=== PATIENT | female | born 1975 | race Caucasian/White ===

== ENCOUNTER 2024-02-13 06:29 | Day surgery (SDC) | payer BC ==
[2024-02-10 10:55] LABS: Absolute Eosinophils 0.1 K/uL (0-0.5); Absolute Lymphocytes (CBC) 1.4 K/uL (0.7-4.9); Absolute Monocytes 0.5 K/uL (0.1-1.3); Absolute Neutrophil 3.4 K/uL (1.8-8.0); Basophils % 0.8 % (0-1.3); Eosinophils % 1.3 % (0-4.4); Hematocrit 42.3 % (36.0-45.0); Hemoglobin 14.1 g/dL (12.0-15.0); Lymphocytes % 26.2 % (15.3-44.8); MCH 27.2 pg (27.0-35.0); MCHC 33.4 g/dL (32.0-36.0); MCV 81.3 fL (80-100); MPV 9.7 fL (7.6-11.3); Monocytes % 9.1 % (3.3-12.3); Neutrophils % 62.6 % (41.7-73.7); Nucleated Red Blood Cells % 0.1 % (0-0); Platelets 171 thou/uL (152-406); Red Cell Distribution Width 13.8 % (12.1-15.2)
[2024-02-10 10:56] LABS: Specific Gravity 1.016 (1.005-1.030); Urine Bilirubin NEGATIVE (Negative); Urine Blood Negative (Negative); Urine Clarity Clear (Clear); Urine Color Light-Yellow (Yellow); Urine Glucose NEGATIVE (Negative); Urine Ketones NEGATIVE (Negative); Urine Microscopic Reflex YN NO UMIC; Urine Nitrite NEGATIVE (Negative); Urine Protein NEGATIVE (Negative); Urine Urobilinogen Normal (Normal)
--- NOTE | 2024-02-11 12:21 | EKG ---
Test Date: 2024-02-10 Test Time: 11:46:09 Hatchery Manager: SAMMY MEASUREMENT RESULTS: Intervals: Rate: 70 [place]: 160 QRSD: 102 QT: 392 QTc: 423 [place]: P: 32 [place]: 160 QRS: 58 T: 48 INTERPRETIVE STATEMENTS: Normal sinus rhythm Incomplete right bundle branch block Borderline ECG No previous ECG available for comparison Electronically Signed On 02-11-24 12:17:19 WELDER APPRENTICE by Bernard Oseguera
[2024-02-13] MEDS: Ringers Lactate 1,000 ML IV ONE ×2 (06:45→10:10)
[2024-02-13] MEDS ORDERED: SCOPOLAMINE HYDROBROMIDE PATCH TD ONE (06:51)
[2024-02-13] MEDS ORDERED: CEFAZOLIN SODIUM 1 GM/VIAL ONE (06:51)
[2024-02-13] MEDS ORDERED: propofoL 200 MG/20 ML VIAL IV ONE (06:54)
[2024-02-13] MEDS ORDERED: LIDOCAINE 1% MPF 5 ML VIAL ONE (06:54)
[2024-02-13] MEDS ORDERED: KETAMINE HCL IN 0.9 % NACL 50 MG/5 ML SYRINGE IV ONE (06:54)
[2024-02-13] MEDS ORDERED: ONDANSETRON 4 MG/2 ML VIAL ONE (06:54)
[2024-02-13] MEDS ORDERED: FENTANYL CITR 100 MCG/2 ML ONE ×3 (06:54→10:47)
[2024-02-13] MEDS ORDERED: ROCURONIUM 50 MG/5 ML VIAL IV ONE (06:54)
[2024-02-13] MEDS ORDERED: dexAMETHasone 4 MG/ML VIAL ONE (06:54)
[2024-02-13] MEDS ORDERED: MIDAZOLAM HCL 2 MG/2 ML INJ ONE (06:55)
[2024-02-13 08:11] LABS: Urine Specific Gravity/Preg >1.030 (1.005-1.030)
[2024-02-13] MEDS: BUPIVACAINE 0.25% PF 30 ML VIAL ONE (08:25)
[2024-02-13] MEDS: CEFAZOLIN SODIUM 2 GM/VIAL ONE (08:25)
[2024-02-13] MEDS ORDERED: EPHEDRINE SULF 50 MG/ML VIAL ONE (08:42)
[2024-02-13] MEDS ORDERED: GLYCOPYRROLATE 0.2 MG/ML SYR ONE (09:17)
[2024-02-13] MEDS ORDERED: KETOROLAC 30 MG/ML INJ ONE (11:12)
[2024-02-13] MEDS ORDERED: MORPHINE 10 MG/ML VIAL ONE (11:39)
[2024-02-13] MEDS: HYDROMORPHONE HCL 1 MG/ML INJ ONE (12:30)
[2024-02-13] MEDS: HYDROCODONE/APAP 5/325 MG TAB ONE (13:23)
[2024-02-13 14:03] VITALS: BP 120/55; TEMP 98.7; O2SAT 98
--- NOTE | 2024-02-13 23:23 | OP ---
Date of Procedure: 02/13/2024 Surgeon: Camilla Cuenca MD Sheet Metal Engineer: Alyssia Genao. Preoperative Diagnoses: Menorrhagia, pelvic pain, and right ovarian cyst. Postoperative Diagnoses: AUB-A/L/O, pelvic pain, stage IV endometriosis, endometriosis of the bilate ral uterosacrals, bilateral lateral mock, right periureteric anterior cul-de-sac, posterior cul-de-s ac endometriosis including endo on both ovaries, right much greater than left. Procedures Performed: 1.Total laparoscopic hysterectomy, bilateral salpingectomy. 2.Right oophorectomy. 3.Extensive endometriosis excision. 4.Right ureterolysis. Estimated Blood Loss: 50. Urine Output: 200. Fluids: LR 1800. Specimens: Uterus, bilateral tubes, right ovary, endometriosis of the left lateral wall uterosacral ligament, right lateral wall, right uterosacral, periureteric endometriosis, right posterior cul-de-s ac, right anterior cul-de-sac, and anterior broad ligament. All these endometriotic implants were ex cised completely from their based until normal tissue was noted. Right ureter was significantly diss ected all the way from the pelvic brim to the ureteric tunnel to isolate it and also release it from the fibrosis around. There appeared to be slight dilatation of the ureter proximal to the ureteric t unnel with deep infiltrating endometriosis seems to have formed a bridge across the ureter, likely ca using compression on it. The ovary on the right side has significant endometriosis on it and off the tube between the right an d the left. The right one was much more significant and given the fact that she had a right ovarian cyst, there was a possibility that they could be a deep-seated endometrium, although that was not harry arent today, that it would be beneficial to remove the right ovary and preserve the left. The epithe lial surface with endometriosis was completely cleaned out with fulguration and the left ovary was le ft intact. The ureters had normal peristalsis without any electrical, mechanical, or thermal injury to them and bladder was unremarkable as well. Condition: Stable. Anesthesia: General endotracheal. Indications: The patient is a 48-year-old female, who presented with iron deficiency anemia and robert rrhagia, 1, para 1, with 1 vaginal delivery, referred from primary care provider, . There was a 3.5 cm cyst on the right ovary that appeared to be complex and thick. The cyst wall wa s mostly unremarkable. CA-125 was 18. The patient has been on Myfembree for about a year, which was very helpful for regulating her cycles. She has been off this for about 2 years and has trouble james ping up with her gynecological visits and therefore had been bleeding longer and heavier and she had iron infusions due to anemia. She has been diagnosed with fibroids 18 years ago. Ultrasound was performed. Hysteroscopy D and C was done and no atypia or malignancy were noted. No large adnexal masses other than the 3.5 cm cyst. The patient was then offered all the different opti ons of medical management and surgical management including Myfembree or an IUD with endometriosis ex cision or ablation with endometriosis excision or hysterectomy most definitively with bilateral salpi ngectomy and endometriosis excision. Possible right ovarian cystectomy was reviewed with the patient. The patient was then consented and brought to the hospital, re-consented in the preoperative area with her , taken back to OR, pl aced in a supine fashion on the table. General anesthesia was given. She was placed in dorsal litho magdalena position using Terrence stirrups. Abdomen, vulva, vagina, and perineum were prepped and draped in a sterile fashion. Patton was placed to drain the bladder. Positioning was checked. The patient was grounded. SCDs started. Time-out was done and then procedure started. Speculum placed to expose the cervix. Anterior lip grasped with single-tooth tenaculum and dilated t o 16-Welsh. A 16-Welsh uterine manipulator was introduced and then a large cup of the uterine desiree pulator was introduced and fixed in place. Patton was placed to drain the bladder and attached to gra vity bag and this area was draped. 1 cm infraumbilical incision made with a scalpel using the open laparoscopy technique. Fascia was in cised, tagged with 3-0 Vicryl sutures. Peritoneum entered sharply. Brittnee introduced. Site of entr y was checked and was unremarkable. A left lower quadrant and a right lower quadrant 5 port was plac ed. Then, a 10/11 suprapubic port was placed all under direct vision after injecting Marcaine at the fascia and skin. 3-0 Monocryl was used to tag the epiploicae of the colon to retract for providing good exposure. On survey of the pelvic cavity, the implants of endometriosis were extensive on bilateral uterosacral ligaments, lateral mock, more on the right than on the left side, and then adhesions of the ovary t o the right lateral wall, cul-de-sac endometriosis both anterior and posteriorly. The work was very straightforward in removing endometriosis first, then followed by the hysterectomy with the right oophorectomy. Endometriosis excision: The left lateral wall was opened lateral to the ureter, pretty close to the crossing of the ureter under the uterine artery. The peritoneum entered sharply, was reflected by di ssecting the peritoneum off the underlying tissues along with endometriosis and peeling it off toward s the uterosacral and the specimen was dissected along the uterosacral and excised. Then on the righ t lateral aspect, there were significant implants and deep infiltrating endometriosis. It was diffic ult to open up the lateral wall from the medial aspect of the broad ligament, so plan was to go on th e opposite side. After the mesosalpinx was opened up between the round ligament on the right side an d the origin of the IP ligament, the posterior peritoneum was incised using a pickup and scissors to create a good window between the ureter and the IP for me to take the pedicle. Once the pedicle was taken down with the help of the LigaSure, then round ligament was also taken down. The dissection wa s carried on to separate the endometriotic implants from the lateral wall. The peritoneum was dissec trinh from the sidewall, the ureter, and the uterosacral ligament and the implants were excised. Then, the implant on the medial aspect of the right uterosacral ligament going into the posterior cul-de-s ac, this was excised as well with the help of LigaSure as well as scissors. Once there was endometri osis removed from here, then went over to the anterior cul-de-sac. The bladder was dissected inferiorly and went over circumferentially removing all the implants in the right anterior broad ligament and anterior cul-de-sac. This was excised from the superior border of the bladder from the lateral aspect of the uterus and folded over on the uterine wall neck. Once th is was excised and handed out until normal tissue was seen, attention was directed to the ureterolysi s. The ureter was open at the brim of the pelvis from the medial leaf of the broad ligament by opening u p the sheath. This was done with sharp dissection using scissors. Once the ureter was dissected rig ht below the level of the pelvic brim, then the dissection was carried inferiorly the retr operitoneal fibrosis from medial to lateral and getting down all the way to the ureteric tunnel. Onc e I was at the ureteric tunnel, this was nicely dissected under the uterine artery and carefully sepa rated from the medial aspect of the endometriotic scar of the uterosacral ligament. Once this was re leased laterally, the uterine artery and vein were noted. The endometriosis was going right on the s urface of these vessels. This was carefully peeled off making an attempt to not leave any residual. Once this plane was clearly dissected and all the endometriosis was removed, the posterior cul-de-sa c right side endometriosis was excised as well. Hysterectomy: The left mesosalpinx was opened up. There were implants on the lateral aspect of the mesosalpinx which were also clearly included with the specimen. Then, mesosalpinx was dissected and the tube. Then, round ligament was taken down. Utero-ovarian ligament was taken down and the anteri or broad ligament opened up to connect the bladder flap, and bladder flap created with monopolar scis sors. Posteriorly, the dissection was taken down to the uterosacral and here it was down to the uter osacral without any problems. Then, the vessels were isolated on both sides, cauterized, and cut wit h the bipolar and monopolar cautery and scissors respectively. Cardinal ligaments were also cauteriz ed and cut. Circumferential colpotomy performed with a monopolar hook blade and taken down around ci rcumferentially and specimen retrieved through the vagina. After thorough irrigation and suction were performed, there was no need for any hemostasis since this was hemostatic already. Two simple lateral PDS sutures were placed and 3 [id number] in the mi ddle. Then, I was able to upgrade the position on both the mock of the anterior and posterior vagin a. Endometriosis fulguration: There were surface epithelial lesions on the left ovary which were cauter ized with the curved tip bipolar and there were implants in the right and left pararectal spaces and these were also picked up and cauterized. I did not want to have any more tissue necrosis in the pos terior aspect of the cul-de-sac with increased risk of likely fistula or any rectal injury. Once all this was complete of fulguration, then the case was completed. Thorough irrigation and suct ion were performed. Excellent peristalsis on both ureters. No evidence of any trauma to the bladder . All instruments removed under direct vision. Trocars removed as the epiploicae that was tagged wa s released and opened and there was cautery ahead to do on one of the epiploica. There was excellent hemostasis. All trocars removed. Fascia was closed at the umbilicus with tagged 0 Vicryl sutures tied to each other and a simple 0 Vicryl stitch in the suprapubic midline. All ski n incisions were closed with interrupted 4-0 Monocryl sutures. The vaginal occluder and Patton were r emoved. All the trocars were removed after gas was desufflated. The procedure was completed. The p atnagi was recovered from anesthesia and taken to PACU in stable condition. MICHELLE/JOANN Voice ID: [id number] Report ID: [id number]
== END 2024-02-13 14:35 | disposition home or self-care (01) ==
LOC: OR 06:29
PROVIDERS: ATTEND Obstetrics & Gynecology
PROC: 0UT74ZZ Resection of Bilateral Fallopian Tubes, Percutaneous Endoscopic Approach (ICD-10-PCS; 2024-02-13)
PROC: 0UT04ZZ Resection of Right Ovary, Percutaneous Endoscopic Approach (ICD-10-PCS; 2024-02-13)
PROC: 0UBF4ZZ Excision of Cul-de-sac, Percutaneous Endoscopic Approach (ICD-10-PCS; 2024-02-13)
PROC: 0UB44ZZ Excision of Uterine Supporting Structure, Percutaneous Endoscopic Approach (ICD-10-PCS; 2024-02-13)
PROC: 0DBW4ZZ Excision of Peritoneum, Percutaneous Endoscopic Approach (ICD-10-PCS; 2024-02-13)
PROC: 0WBF4ZZ Excision of Abdominal Wall, Percutaneous Endoscopic Approach (ICD-10-PCS; 2024-02-13)
PROC: 0TN64ZZ Release Right Ureter, Percutaneous Endoscopic Approach (ICD-10-PCS; 2024-02-13)
PROC: 0UT94ZZ Resection of Uterus, Percutaneous Endoscopic Approach (ICD-10-PCS; principal; 2024-02-13 07:30)
DX: N92.0 Excessive and frequent menstruation with regular cycle (principal); R10.2 Pelvic and perineal pain; N83.291 Other ovarian cyst, right side; N80.A61 Endometriosis of right ureter, unspecified depth; N80.319 Endometriosis of the anterior cul-de-sac, unspecified depth; N80.329 Endometriosis of the posterior cul-de-sac, unspecified depth; N80.3C1 Endometriosis of the right uterosacral ligament, unspecified depth; N80.30 Endometriosis of pelvic peritoneum, unspecified
CPT/HCPCS: 93005; 85025; 36415; 86900; 86850; 81025; 86901; 88305; 81003; 58571; 58662; 50949; J2704; J1100; J2003; J2250; J3010 ×3; J1171; J2405; J7120 ×2; J0690; 88307; 88311

== ENCOUNTER 2024-08-13 17:13 | Emergency (ER) | payer BC ==
--- OUTSIDE RECORDS SUMMARY | 2024-08-13 17:16 | XMS REPORT | Continuity of Care Document ---
Author Name Unknown Address [address] [facility] [address] [place] [address] Organization [facility] [place] Address [address] [facility] [address] [place] [address] Care Team Providers Care Material Stockkeeper [employer] Name Role Phone MARKUS_Luis Attending Clinician Unavailable MARKUS_Luis Admitting Clinician Unavailable Payers Payer Name Policy Type Policy Number Effective Date Expirati on Date Source [place] [id number] 2022 00:00:00 Problems Condition Name Condition Details Condition Category Status Onset Date Resolution Date Last Treatment Date Treating Clinician Comments Source Condyloma acuminatum of the anogenital region Condyloma Acuminatum of the Anogenital Region Problem Active 4-02 00:00: 00 [facility] Hypertroph y of labia Hypertroph y of Labia Problem Active 4-02 00:00: 00 [facility] Skin tag Skin Tag Problem Active 4-02 00:00: 00 [facility] Tinea corporis Tinea Corporis Problem Active 2023-04-18 00:00: 00 [facility] Candidiasi s of vagina Candidiasi s of Vagina Problem Active 2023-04 1-18 00:00: 00 [facility] Essential hypertensi on Essential Hypertensi on Problem Active 2023-04 0-15 00:00: 00 [facility] Complex cyst of right ovary Complex Cyst of Right Ovary Problem Active - 00:00: 00 [facility] Iron deficiency anemia Iron Deficiency Anemia Problem Active - 00:00: 00 [facility] Pain in pelvis Pain in Pelvis Problem Active - 00:00: 00 [facility] Pelvic and perineal pain Pelvic and Perineal Pain Problem Active 12-29 00:00: 00 [facility] Excessive and frequent menstruati on Excessive and Frequent Menstruati on Problem Active 12-10 00:00: 00 [facility] Social History Smoking Status Start Date Stop Date Source Never Smoker [facility] Medications Ordered Medication Name Filled Medication Name Start Date Stop Date Current Medication? Ordering Clinician Indication Dosage Frequency Signature (SIG) Comments Components Source duloxetine 60 mg capsule,del ayed release TAKE 1 CAPSULE BY MOUTH EVERY DAY duloxetine 60 mg capsule,del ayed release TAKE 1 CAPSULE BY MOUTH EVERY DAY No duloxetine 60 mg capsule,de layed release TAKE 1 CAPSULE BY MOUTH EVERY DAY [facility] nebivolol 20 mg tablet TAKE 1 TABLET BY MOUTH EVERY DAY nebivolol 20 mg tablet TAKE 1 TABLET BY MOUTH EVERY DAY No nebivolol 20 mg tablet TAKE 1 TABLET BY MOUTH EVERY DAY [facility] ondansetron 4 [address] disintegr[address] ing tablet PL[address] 1 TABLET BY TRANSLINGUA L ROUTE EVERY 6 TO 8 HOURS NEEDED ondansetron 4 mg disintegrat ing tablet PLACE 1 TABLET BY TRANSLINGUA L ROUTE EVERY 6 TO 8 HOURS NEEDED No 1 Q7H ondansetro n 4 mg disintegra ting tablet PLACE 1 TABLET BY TRANSLINGU AL ROUTE EVERY 6 TO 8 HOURS NEEDED [facility] valacyclovi r 1 gram tablet valacyclovi r 1 gram tablet No valacyclov ir 1 gram tablet [facility] valacyclovi r 500 mg tablet TAKE 1 TABLET BY MOUTH ONCE A DAY FOR CHRONIC SUPPRESSION valacyclovi r 500 mg tablet TAKE 1 TABLET BY MOUTH ONCE A DAY FOR CHRONIC SUPPRESSION No valacyclov ir 500 mg tablet TAKE 1 TABLET BY MOUTH ONCE A DAY FOR CHRONIC SUPPRESSIO N [facility] hydrochloro thiazide 25 mg tablet TAKE 1 TABLET BY MOUTH EVERY DAY hydrochloro thiazide 25 mg tablet TAKE 1 TABLET BY MOUTH EVERY DAY No 1 Q1D hydrochlor othiazide 25 mg tablet TAKE 1 TABLET BY MOUTH EVERY DAY [facility] Venofer 200 mg iron/10 mL intravenous solution Dose: 200 mg IV x5 doses w/in 14 days Venofer 200 mg iron/10 mL intravenous solution Dose: 200 mg IV x5 doses w/in 14 days No Venofer 200 mg iron/10 mL intravenou s solution Dose: 200 mg IV x5 doses w/in 14 days [facility] celecoxib 200 mg capsule TAKE 1 CAPSULE EVERY DAY BY ORAL ROUTE DIRECTED FOR 1 DAY. celecoxib 200 mg capsule TAKE 1 CAPSULE EVERY DAY BY ORAL ROUTE DIRECTED FOR 1 DAY. No celecoxib 200 mg capsule TAKE 1 CAPSULE EVERY DAY BY ORAL ROUTE DIRECTED FOR 1 DAY. [facility] compounded medication Semagltuide sq qw compounded medication Semagltuide sq qw No compounded medication Semagltuid e sq qw [facility] diazepam 10 mg tablet PLEASE SEE ATTACHED FOR DETAILED DIRECTIONS diazepam 10 mg tablet PLEASE SEE ATTACHED FOR DETAILED DIRECTIONS No diazepam 10 mg tablet PLEASE SEE ATTACHED FOR DETAILED DIRECTIONS [facility] tramadol 50 mg tablet TAKE 1 TABLET BY MOUTH EVERY 8 HOURS NEEDED FOR 3 DAYS tramadol 50 mg tablet TAKE 1 TABLET BY MOUTH EVERY 8 HOURS NEEDED FOR 3 DAYS No tramadol 50 mg tablet TAKE 1 TABLET BY MOUTH EVERY 8 HOURS NEEDED FOR 3 DAYS [facility] hydrochloro thiazide 25 mg tablet TAKE 1 TABLET BY MOUTH EVERY DAY hydrochloro thiazide 25 mg tablet TAKE 1 TABLET BY MOUTH EVERY DAY No hydrochlor othiazide 25 mg tablet TAKE 1 TABLET BY MOUTH EVERY DAY [facility] nebivolol 20 mg tablet TAKE 1 TABLET BY MOUTH EVERY DAY nebivolol 20 mg tablet TAKE 1 TABLET BY MOUTH EVERY DAY No nebivolol 20 mg tablet TAKE 1 TABLET BY MOUTH EVERY DAY [facility] amitriptyli ne 25 mg tablet TAKE 1 TABLET BY MOUTH EVERYDAY AT BEDTIME amitriptyli ne 25 mg tablet TAKE 1 TABLET BY MOUTH EVERYDAY AT BEDTIME No 1 Q1D amitriptyl ine 25 mg tablet TAKE 1 TABLET BY MOUTH EVERYDAY AT BEDTIME [facility] duloxetine 60 mg capsule,del ayed release TAKE 1 CAPSULE BY MOUTH EVERY DAY duloxetine 60 mg capsule,del ayed release TAKE 1 CAPSULE BY MOUTH EVERY DAY No duloxetine 60 mg capsule,de layed release TAKE 1 CAPSULE BY MOUTH EVERY DAY [facility] buspirone 7.5 mg tablet TAKE 1 TABLET BY MOUTH TWICE A DAY buspirone 7.5 mg tablet TAKE 1 TABLET BY MOUTH TWICE A DAY No 1 BID buspirone 7.5 mg tablet TAKE 1 TABLET BY MOUTH TWICE A DAY [facility] amitriptyli ne 25 mg tablet TAKE 1 TABLET BY MOUTH EVERYDAY AT BEDTIME amitriptyli ne 25 mg tablet TAKE 1 TABLET BY MOUTH EVERYDAY AT BEDTIME No amitriptyl ine 25 mg tablet TAKE 1 TABLET BY MOUTH EVERYDAY AT BEDTIME [facility] Medical compounded medication Simagltuide SQ QW SQ QW compounded medication Simagltuide SQ QW SQ QW No compounded medication Simagltuid e SQ QW SQ QW [facility] buspirone 7.5 mg tablet TAKE 1 TABLET BY MOUTH TWICE A DAY buspirone 7.5 mg tablet TAKE 1 TABLET BY MOUTH TWICE A DAY No buspirone 7.5 mg tablet TAKE 1 TABLET BY MOUTH TWICE A DAY [facility] valacyclovi r 500 mg tablet valacyclovi r 500 mg tablet No valacyclov ir 500 mg tablet [facility] Vital Signs Vital Name Observation Time Observation Value Comments [facility] BP Diastolic 2024-07-08 00:00:00 80 mm[Hg] [facility] BP Systolic 2024-07-08 00:00:00 128 mm[Hg] [facility] Height 2024-07-08 00:00:00 68 [in_i] [facility] BP Diastolic 2024-02-24 00:00:00 57 mm[Hg] [facility] Height 2024-02-24 00:00:00 68 [in_i] [facility] BP Systolic 2024-02-24 00:00:00 124 mm[Hg] [facility] BMI (Body Mass Index) 2024-02-24 00:00:00 35.6 kg/m2 [facility] Body Weight 2024-02-24 00:00:00 234 [lb_av] [facility] Height 2024-02-20 00:00:00 68 [in_i] [facility] BP Diastolic 2024-02-20 00:00:00 79 mm[Hg] [facility] BP Systolic 2024-02-20 00:00:00 94 mm[Hg] [facility] Body Weight 2024-02-20 00:00:00 234 [lb_av] [facility] BMI (Body Mass Index) 2024-02-20 00:00:00 35.6 kg/m2 [facility] BP Systolic 2024-01-21 00:00:00 132 mm[Hg] [facility] Body Weight 2024-01-21 00:00:00 234 [lb_av] [facility] BP Diastolic 2024-01-21 00:00:00 72 mm[Hg] [facility] BMI (Body Mass Index) 2024-01-21 00:00:00 35.6 kg/m2 [facility] Height 2024-01-21 00:00:00 68 [in_i] [facility] BMI (Body Mass Index) 2024-01-14 00:00:00 37.3 kg/m2 [facility] Body Weight 2024-01-14 00:00:00 3814 [oz_av] [facility] Height 2024-01-14 00:00:00 67 [in_i] [facility] BP Systolic 2023-12-13 00:00:00 97 mm[Hg] [facility] Height 2023-12-13 00:00:00 68 [in_i] [facility] BP Diastolic 2023-12-13 00:00:00 62 mm[Hg] [facility] BP Systolic 2023-11-12 00:00:00 127 mm[Hg] [facility] Height 2023-11-12 00:00:00 68 [in_i] [facility] BMI (Body Mass Index) 2023-11-12 00:00:00 35.6 kg/m2 [facility] BP Diastolic 2023-11-12 00:00:00 74 mm[Hg] [facility] Body Weight 2023-11-12 00:00:00 234 [lb_av] [facility] BP Diastolic 2023-10-01 00:00:00 86 mm[Hg] [facility] BP Systolic 2023-10-01 00:00:00 132 mm[Hg] [facility] Body Weight 2023-10-01 00:00:00 3759 [oz_av] [facility] Height 2023-10-01 00:00:00 67 [in_i] [facility] BMI (Body Mass Index) 2023-10-01 00:00:00 36.8 kg/m2 [facility] BP Systolic 2023-05-01 00:00:00 164 mm[Hg] [facility] BP Diastolic 2023-05-01 00:00:00 76 mm[Hg] [facility] BMI (Body Mass Index) 2023-05-01 00:00:00 40.3 kg/m2 [facility] Height 2023-05-01 00:00:00 67 [in_i] [facility] Body Weight 2023-05-01 00:00:00 4122 [oz_av] [facility] Procedures Procedure Date / Time Performed Performing Clinician Source XR, foot, 3 or more view 2024-01-14 00:00:00 [facility] US, pelvis, transabdominal + transvaginal 2023-10-01 00:00:00 [facility] MAMMO, screening, bilateral 2023-05-01 00:00:00 [facility] US, pelvis, transabdominal + transvaginal 2023-05-01 00:00:00 [facility] Encounters Start Date/Time End Date/Time Encounter Type Admission Type Attending Clinicians Care Facility Care Department Encounter ID Source 2024-07-08 00:00:00 2024-07-08 00:00:00 Camilla Cuenca MD: [address], [place] [address] , Ph. [facility] GC[facility]* [id number] [facility] 2024-02-24 00:00:00 2024-02-24 00:00:00 PETR Bowden: [address], [place] [address] , Ph. [facility]_GCBZ[facility]* [id number] [facility] 2024-02-20 00:00:00 2024-02-20 00:00:00 PETR Castro: [address], [place] [id number] , Ph. [facility] - GC_GCBZW_[facility]* [id number] [facility] 2024-01-21 00:00:00 2024-01-21 00:00:00 JORGE CastroP: [address], [place] [address] , Ph. [facility] - GC_GCBZW_[facility]* [id number] [facility] 2024-01-14 00:00:00 2024-01-14 00:00:00 Koby Vazquez, MSN, EVENT SET UP SPECIALIST, SUPERVISOR GRADING-C: [address], [address], [place] [address] , Ph. [facility], Koby Vazquez, MSN, SUPERVISOR [employer] [id number] [facility] 2023-12-25 00:00:00 2023-12-25 00:00:00 PETR Bowden: [address], [place] [address] , Ph. [facility] - GC_GCBZW_[facility]* [id number] [facility] 2023-12-13 00:00:00 2023-12-13 00:00:00 Camilla Cuenca MD: [address], [place] [address] , Ph. [facility] - GC_GCBZW_[facility]* [id number] [facility] 2023-11-12 00:00:00 2023-11-12 00:00:00 JAN Olivo: [address], [place] [address] , Ph. [facility] - GC_[facility]BZW_[place] [facility]* [id number] [facility] 2023-10-01 00:00:00 2023-10-01 00:00:00 Koby Vazquez, MSN, EVENT SET UP SPECIALIST, SUPERVISOR GRADING[employer]: [address], [address], [place] [address] , Ph. [facility], Koby Vazquez, MSN, SUPERVISOR [employer] [id number] 2023-08-07 00:00:00 2023-08-07 00:00:00 Koby Vazquez MSN, EVENT SET UP SPECIALIST, SUPERVISOR GRADING-C: [address], [address], [place] [address] , Ph. [facility], Koby Vazquez MSN, SUPERVISOR [employer]C [id number] [facility] 2023-05-28 00:00:00 2023-05-28 00:00:00 Outpatient [facility] [id number] [facility] 2023-05-15 00:00:00 2023-05-15 00:00:00 Outpatient [facility] [id number] [facility] 2023-05-01 00:00:00 2023-05-01 00:00:00 Outpatient [facility] [id number] [facility] 2023-05-01 00:00:00 2023-05-01 00:00:00 Koby Vazquez, MSN, EVENT SET UP SPECIALIST, SUPERVISOR GRADING-C: [address], [address], [place] [address] , Ph. [facility], Koby Vazquez, MSN, SUPERVISOR GRADING-C [id number] [facility] 2023-04-18 00:00:00 2023-04-18 00:00:00 Outpatient MARKUS_Luis [facility] [id number] [facility] Results Test Description Test Time Test Comments Results Result Co mments Source [facility] MedicalCancer Ag 125 [Units/volume] in Serum or [id number] 00:00:00 * Test Item Value Reference Range Interpretation Comme nts CA-125 (test code = CA-125) 18.4 U/mL 6.4-38.1 [facility] Medicalpregnancy test, [id number] 09:43:00* Test Item Value Reference Range Interpretation Comme nts HCG (test code = HCG) negative [facility] MedicalChlamydia trachomatis and Neisseria gonorrhoeae rRNA panel - Specimen by CHIQUIS with probe [id number] 00:00:00* Test Item Value Reference Range Interpretation Comme nts aptima combo 2 swab (CT) (te st code = aptima combo 2 swab (CT)) CT NEG negative aptima combo 2 swab (GC) (te st code = aptima combo 2 swab (GC)) GC NEG negative [facility] Medicalpap, LB + [id number] 00:00:00* Test Item Value Reference Range Interpretation Comme nts LMP date: (test code = LMP date:) 10/24/2023 Pap, liquid-based (test code = Pap, liquid-based) NILM nilm source (liquid-based cytology): (test code = source (liquid-based cytology):) CERVICAL (WHICH INCLUDES ENDOCERVICAL) HPV high risk DNA (non 16/18) (test code = HPV high risk DNA (non 16/18)) NOT DETECTED not detected HPV high risk DNA type 16 (test code = HPV high risk DNA type 16) NOT DETECTED not detected HPV high risk DNA type 18 (test code = HPV high risk DNA type 18) NOT DETECTED not detected [facility]
[2024-08-13] MEDS ORDERED: ONDANSETRON 4 MG/2 ML VIAL ONE ×2 (17:51→20:44)
[2024-08-13] MEDS ORDERED: MORPHINE 4 MG/ML SYR ONE ×2 (17:51→20:44)
[2024-08-13] MEDS ORDERED: NA CHLORIDE 0.9% 1,000 ML ONE (17:51)
[2024-08-13 18:10] LABS: Absolute Basophils 0.1 K/uL (0-0.5); Absolute Eosinophils 0.1 K/uL (0-0.5); Absolute Lymphocytes (CBC) 1.4 K/uL (0.7-4.9); Absolute Monocytes 0.8 K/uL (0.1-1.3); Absolute Neutrophil 8.1 K/uL (1.8-8.0); Basophils % 0.5 % (0-1.3); Eosinophils % 1.4 % (0-4.4); Hematocrit 45.5 % (36.0-45.0); Hemoglobin 15.5 g/dL (12.0-15.0); Lymphocytes % 13.5 % (15.3-44.8); MCHC 34.2 g/dL (32.0-36.0); MCV 81.9 fL (80-100); MPV 9.2 fL (7.6-11.3); Monocytes % 7.3 % (3.3-12.3); Neutrophils % 77.3 % (41.7-73.7); Nucleated Red Blood Cells % 0.2 % (0-0); Platelets 161 thou/uL (152-406); RBC Red Blood Cell Count 5.55 M/uL (3.86-4.86); Red Cell Distribution Width 14.2 % (12.1-15.2)
[2024-08-13 18:28] LABS: Specific Gravity 1.015 (1.005-1.030)
[2024-08-13 18:29] LABS: ALT/SGPT 359 U/L (13-56); AST/SGOT 224 U/L (15-37); Albumin 3.9 g/dL (3.4-5.0); Albumin/Globulin Ratio 1.1 (1.1-1.8); Alkaline Phosphatase 228 U/L (45-117); Anion Gap 11.3 mEq/L (5.0-15.0); BUN Blood Urea Nitrogen 13 mg/dL (7-18); Bicarbonate 26 mEq/L (21-32); Bilirubin Total 6.8 mg/dL (0.2-1.0); Globulin 3.4 g/dL (2.3-3.5); Glomerular Filtration Rate 61 ml/min (=/>90); Glucose Level 120 mg/dL (74-106); Potassium 3.3 mEq/L (3.5-5.1); Protein, Total 7.3 g/dL (6.4-8.2); Sodium Level 136 mEq/L (136-145)
[2024-08-13 18:35] LABS: Lipase > 5000 U/L (13-75)
--- NOTE | 2024-08-13 19:12 | ER ---
Nurse's Notes [facility] Name: Ankita Love Age: 49 yrs Sex: Female : 1975 Arrival Date: 08/13/2024 Time: 17:13 Bed 7 Private MD: Diagnosis: Choledocholithiasis, abdominal pain, hyperbilirubinemia, gallstone pancreatitis Presentation: 08/13 17:32 Chief complaint: Patient states: 2 -3 months started having pain on right abd area, the iw past 7-10 days started having diarrhea and bloating and pain under right ribs. Coronavirus screen: At this time, the client does not indicate any symptoms associated with coronavirus-19. Ebola Screen: No symptoms or risks identified at this time. Initial Sepsis Screen: Does the patient meet any 2 criteria? No. Patient's initial sepsis screen is negative. Does the patient have a suspected source of infection? No. Patient's initial sepsis screen is negative. Risk Assessment: Do you want to hurt yourself or someone else? Patient reports no desire to harm self or others. Onset of symptoms was August 06, 2024. 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 - Infectious Disease History:: Denies. - Social history:: Smoking status: Patient denies any tobacco usage or history of. Screenin:21 [facility] ED Fall Risk Assessment (Adult) History of falling in the last 3 months, kc6 including since admission No falls in past 3 months (0 pts) Confusion or Disorientation No (0 pts) Intoxicated or Sedated No (0 pts) Impaired Gait No (0 pts) Mobility Assist Device Used No (0 pt) Altered Elimination No (0 pt) Score/Fall Risk Level 0 - 2 = Low Risk Oriented to surroundings. Abuse screen: Denies threats or abuse. Denies injuries from another. Nutritional screening: No deficits noted. Tuberculosis screening: No symptoms or risk factors identified. Assessment: 18:21 General: Appears in no apparent distress. comfortable, well groomed, well developed, kc6 Behavior is calm, cooperative, appropriate for age. Pain: Complains of pain in right upper quadrant and left upper quadrant Pain does not radiate. Pain currently is 7 out of 10 on a pain scale. Quality of pain is described as sharp, Pain began 1 day ago. Is intermittent. Neuro: Level of Consciousness is awake, alert, obeys commands, Oriented to person, place, time, situation, Appropriate for age. Cardiovascular: Capillary refill < 3 seconds. Respiratory: Airway is patent Trachea midline Respiratory effort is even, unlabored, Respiratory pattern is regular, symmetrical. GI: Abdomen is round non-distended, Bowel sounds present X 4 quads. Abd is soft X 4 quads Abdomen is tender to palpation in right upper quadrant and left upper quadrant Reports upper abdominal pain, nausea, Patient currently denies diarrhea, vomiting. : Urine is blood tinged, Denies burning with urination, urinary frequency, urgency. EENT: No signs and/or symptoms were reported regarding the EENT system. Derm: Skin is intact, is healthy with good turgor, Skin is dry, Skin is jaundiced, Skin temperature is warm. Musculoskeletal: No signs and/or symptoms reported regarding the musculoskeletal system. Circulation, motion, and sensation intact. Range of motion: intact in all extremities. 19:36 Reassessment: Patient appears in no apparent distress at this time. Patient and/or bm8 family updated on plan of care and expected duration. Pain level reassessed. Patient is alert, oriented x 3, equal unlabored respirations, skin warm/dry/pink. Patient states feeling better. Patient states symptoms have improved. Pain: Complains of pain in right upper quadrant Pain currently is 5 out of 10 on a pain scale. 20:03 Reassessment: report given to caio mendez \T\ [facility]. 8 20:41 Reassessment: Patient appears in no apparent distress at this time. Patient and/or bm8 family updated on plan of care and expected duration. Pain level reassessed. Patient is alert, oriented x 3, equal unlabored respirations, skin warm/dry/pink. Patient states feeling better. Patient states symptoms have improved. Pain: Complains of pain in right upper quadrant Pain currently is 3 out of 10 on a pain scale. Vital Signs: 17:32 BP 136 / 92; Pulse 64; Resp 20 S; Temp 97.8; Pulse Ox 99% on R/A; Weight 106.59 kg; iw Height 5 ft. 8 in. ; Pain 7/10; 19:36 BP 152 / 73; Pulse 68; Resp 18; Temp 97.8; Pulse Ox 100% ; Pain 5/10; bm8 20:41 BP 134 / 76; Pulse 62; Resp 18; Temp 97.8; Pulse Ox 100% ; Pain 5/10; bm8 17:32 Body Mass Index 35.73 (106.59 kg, 172.72 cm) iw 17:32 Pain Scale: Adult iw 19:36 Pain Scale: Adult bm8 20:41 Pain Scale: Adult bm8 Morton Coma Score: 19:36 Eye Response: spontaneous(4). Motor Response: obeys commands(6). Verbal Response: bm8 oriented(5). Total: 15. 20:41 Eye Response: spontaneous(4). Motor Response: obeys commands(6). Verbal Response: bm8 oriented(5). Total: 15. ED Course: 17:17 Patient arrived in ED. gl 17:18 Sameer Mendez MD is Attending Physician. sp3 17:34 Triage completed. iw 17:36 Arm band placed on. iw 17:42 Constantine Vigil RN is Primary Nurse. bp 18:21 Patient has correct armband on for positive identification. Placed in gown. Bed in low kc6 position. Call light in reach. Side rails up X 1. Adult w/ patient. Pulse ox on. NIBP on. Door closed. Noise minimized. Lights dimmed. Pillow given. Verbal reassurance given. 18:21 Initial lab(s) drawn, by ED staff, sent to lab. Urine collected: clean catch specimen, kc6 clear. Inserted saline lock: 20 gauge in right antecubital area, using aseptic technique. Blood collected. Flushed with 10 mL NS. Patient maintains SpO2 saturation greater than 95% on room air. 18:45 US Abdomen Limited In Process Unspecified. EDMS 19:00 Report given to CAIO Santos \T\ CAIO Pelayo. kc6 19:09 CT Abd/Pelvis - IV Contrast Only In Process Unspecified. EDMS 19:17 Transfer initiated \T\ 1916. bc6 19:36 Provided Education on: need for transfer. bm8 19:36 No provider procedures requiring assistance completed. bm8 20:23 Pt accepte to [facility] \T\[address] Florentino, admin approval \T\1934 by Matthew Garza. bc 6 [place] to tranport. 20:41 Patient transferred, IV remains in place. bm8 Administered Medications: 18:21 Drug: morphine IVP or IV 4 mg IVP once over 4 mins Route: IVP; Infused Over: 4 mins; kc6 Site: right antecubital; 18:41 Follow up: Response: No adverse reaction; Pain is unchanged, physician notified; RASS: kc6 Alert and Calm (0) 18:21 Drug: NS 0.9% IV 1000 ml IV at 1 bolus Per protocol; to be given as a bolus over 60 kc6 minutes Route: IV; Rate: 1 bolus; Site: right antecubital; 19:38 Follow up: Response: No adverse reaction; IV Status: Completed infusion bm8 18:22 Drug: Ondansetron IVP 4 mg IVP once; over 2 minutes Route: IVP; Site: right antecubital;kc6 18:41 Follow up: Response: No adverse reaction 6 19:38 Drug: HYDROmorphone IVP 1 mg IVP once Route: IVP; Site: right antecubital; bm8 20:42 Follow up: Response: No adverse reaction bm8 19:38 Drug: Piperacillin-Tazobactam IVPB 3.375 grams IVPB once over 60 mins; (mix in NS 100 bm8 mL) Route: IVPB; Infused Over: 60 mins; Site: right antecubital; 20:42 Follow up: Response: No adverse reaction; IV Status: Completed infusion bm8 20:48 Drug: morphine IVP or IV 4 mg IVP once over 4 mins Route: IVP; Infused Over: 4 mins; bm8 Site: right antecubital; 20:49 Follow up: Response: Medication Administered at Departure bm8 20:48 Drug: Ondansetron IVP 4 mg IVP once; over 2 minutes Route: IVP; Site: right antecubital;bm8 20:48 Follow up: Response: Medication Administered at Departure bm8 Medication: 19:36 VIS not applicable for this client. bm8 Outcome: 19:12 ER care complete, transfer ordered by MD. [email or web address] 20:41 Transferred by ground EMS to [facility], Transfer form completed. bm8 X-rays sent w/ patient. 20:41 Condition: stable 20:41 Instructed on the need for transfer, Demonstrated understanding of instructions, follow-up care, medications, 20:49 Patient left the ED. bm8 Signatures: Dispatcher [employer] EDMS Suze Caceres RN RN iw Constantine Vigil RN RN Sameer Villalobos MD MD sp3 Dimple Pool RN RN kc6 Betzaida Morales Tom Murdock RN RN bm8 Marina Reid, Reg Reg gl Corrections: (The following items were deleted from the chart) 17:35 17:32 BP 136 / 92; Pulse 64bpm; Resp 20bpm; Spontaneous; Temp 97.8F; 106.59 kg; Height iw 5 ft. 8 in.; BMI: 35.7; Pain 7/10, Adult; iw 19:13 17:41 Inserted saline lock: 20 gauge in right antecubital area, using aseptic kc6 technique. Blood collected. Flushed with 10 mL NS kc6 19:13 17:41 Patient maintains SpO2 saturation greater than 95% on room air. kc6 kc6 19:13 17:41 Initial lab(s) drawn, by ED staff, sent to lab. Urine collected: clean catch kc6 specimen, clear, kc6
[2024-08-13] MEDS ORDERED: PIPERACIL/TAZO 3.375 GM VIAL IV ONE (19:13)
[2024-08-13] MEDS ORDERED: HYDROMORPHONE HCL 0.5 MG/0.5 ML INJ ONE (19:13)
[2024-08-13] MEDS ORDERED: NA CHLORIDE 0.9% 100 ML ONE (19:13)
--- NOTE | 2024-08-13 19:13 | EDPHYS ---
Physician Documentation [facility] Name: Ankita Love Age: 49 yrs Sex: Female : 1975 Arrival Date: 08/13/2024 Time: 17:13 Bed 7 Private MD: ED Physician Sameer Mendez HPI: 08/13 19:03 This 49 yrs old Female presents to ER via Ambulatory with complaints of Abdominal Pain. sp3 19:03 . 49-year-old female with history of hypertension and depression presents to the ED sp3 with chief complaint epigastric and right upper quad abdominal pain over the last several days. She is also noticed that her skin is starting to turn yellow. She has no past surgical history other than hysterectomy taken out for heavy bleeding. She denies any vomiting, chest pain, shortness of breath, back pain, trauma, fever or any other signs or symptoms on ROS at this time.. 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 - Infectious Disease History:: Denies. - Social history:: Smoking status: Patient denies any tobacco usage or history of. ROS: 19:08 Constitutional: Negative for fever, chills, and weight loss, Eyes: Negative for injury, sp3 pain, redness, and discharge, ENT: Negative for injury, pain, and discharge, Neck: Negative for injury, pain, and swelling, Cardiovascular: Negative for chest pain, palpitations, and edema, Respiratory: Negative for shortness of breath, cough, wheezing, and pleuritic chest pain, Back: Negative for injury and pain, MS/Extremity: Negative for injury and deformity, Skin: Negative for injury, rash, and discoloration, Neuro: Negative for headache, weakness, numbness, tingling, and seizure, Psych: Negative for depression, anxiety, suicide ideation, homicidal ideation, and hallucinations, Allergy/Immunology: Negative for hives, rash, and allergies, Endocrine: Negative for neck swelling, polydipsia, polyuria, polyphagia, and marked weight changes, 19:08 All other systems are negative, Exam: 19:08 Constitutional: This is a well developed, well nourished patient who is awake, alert, sp3 and in no acute distress. Head/Face: Normocephalic, atraumatic. Eyes: Pupils equal round and reactive to light, extra-ocular motions intact. Lids and lashes normal. Conjunctiva and sclera are non-icteric and not injected. Cornea within normal limits. Periorbital areas with no swelling, redness, or edema. Neck: Trachea midline, no thyromegaly or masses palpated, and no cervical lymphadenopathy. Supple, full range of motion without nuchal rigidity, or vertebral point tenderness. No Meningismus. Chest/axilla: Normal chest wall appearance and motion. Nontender with no deformity. No lesions are appreciated. Cardiovascular: Regular rate and rhythm with a normal S1 and S2. No gallops, murmurs, or rubs. Normal PMI, no JVD. No pulse deficits. Respiratory: Lungs have equal breath sounds bilaterally, clear to auscultation and percussion. No rales, rhonchi or wheezes noted. No increased work of breathing, no retractions or nasal flaring. Back: No spinal tenderness. No costovertebral tenderness. Full range of motion. Skin: Warm, dry with normal turgor. Normal color with no rashes, no lesions, and no evidence of cellulitis. MS/ Extremity: Pulses equal, no cyanosis. Neurovascular intact. Full, normal range of motion. Neuro: Awake and alert, GCS 15, oriented to person, place, time, and situation. Cranial nerves II-XII grossly intact. Motor strength 5/5 in all extremities. Sensory grossly intact. Cerebellar exam normal. Normal gait. Psych: Awake, alert, with orientation to person, place and time. Behavior, mood, and affect are within normal limits. 19:08 Abdomen/GI: Patient has right upper quadrant abdominal pain palpation with mild peritoneal signs., Vital Signs: 17:32 BP 136 / 92; Pulse 64; Resp 20 S; Temp 97.8; Pulse Ox 99% on R/A; Weight 106.59 kg; iw Height 5 ft. 8 in. ; Pain 7/10; 19:36 BP 152 / 73; Pulse 68; Resp 18; Temp 97.8; Pulse Ox 100% ; Pain 5/10; bm8 20:41 BP 134 / 76; Pulse 62; Resp 18; Temp 97.8; Pulse Ox 100% ; Pain 5/10; bm8 17:32 Body Mass Index 35.73 (106.59 kg, 172.72 cm) iw 17:32 Pain Scale: Adult iw 19:36 Pain Scale: Adult bm8 20:41 Pain Scale: Adult bm8 Arverne Coma Score: 19:36 Eye Response: spontaneous(4). Motor Response: obeys commands(6). Verbal Response: bm8 oriented(5). Total: 15. 20:41 Eye Response: spontaneous(4). Motor Response: obeys commands(6). Verbal Response: bm8 oriented(5). Total: 15. MDM: 17:35 Medical Screening Exam initiated sp3 19:10 Data reviewed: vital signs, nurses notes, lab test result(s), radiologic studies. ED sp3 course: 49-year-old female with right upper quadrant abdominal pain. Differential diagnosis includes cholecystitis, biliary colic, cholelithiasis, gastritis, pancreatitis, colitis, among others. I med/tele suspicious of pathology, RECRUITING AND SELECTION CONSULTANT pathology, ACS or any other cardiac pulmonary process at this time. Initial workup demonstrates elevated LFTs, lipase and T. bili. Ultrasound demonstrates common bile duct dilatation of 12 mm and has multiple small stones in her gallbladder. No gallbladder wall thickening noted. Will start her on pain medication and antibiotics and have her transferred to facility with GI capability.. 19:38 ED course: Patient accepted at [facility]. sp3 08/13 17:36 Order name: CBC with Diff; Complete Time: 18:36 sp3 08/13 17:36 Order name: CMP; Complete Time: 18:36 sp3 08/13 17:36 Order name: Lipase; Complete Time: 18:36 sp3 08/13 17:36 Order name: Test, Urine; Complete Time: 18:36 sp3 08/13 17:36 Order name: CT Abd/Pelvis - IV Contrast Only; Complete Time: 20:07 sp3 08/13 17:38 Order name: US Abdomen Limited; Complete Time: 19:31 sp3 08/13 17:36 Order name: IV Saline Lock; Complete Time: 18:21 sp3 08/13 17:36 Order name: Labs collected and sent; Complete Time: 18:21 sp3 Administered Medications: 18:21 Drug: morphine IVP or IV 4 mg IVP once over 4 mins Route: IVP; Infused Over: 4 mins; kc6 Site: right antecubital; 18:41 Follow up: Response: No adverse reaction; Pain is unchanged, physician notified; RASS: kc6 Alert and Calm (0) 18:21 Drug: NS 0.9% IV 1000 ml IV at 1 bolus Per protocol; to be given as a bolus over 60 kc6 minutes Route: IV; Rate: 1 bolus; Site: right antecubital; 19:38 Follow up: Response: No adverse reaction; IV Status: Completed infusion bm8 18:22 Drug: Ondansetron IVP 4 mg IVP once; over 2 minutes Route: IVP; Site: right antecubital;kc6 18:41 Follow up: Response: No adverse reaction kc6 19:38 Drug: HYDROmorphone IVP 1 mg IVP once Route: IVP; Site: right antecubital; bm8 20:42 Follow up: Response: No adverse reaction bm8 19:38 Drug: Piperacillin-Tazobactam IVPB 3.375 grams IVPB once over 60 mins; (mix in NS 100 bm8 mL) Route: IVPB; Infused Over: 60 mins; Site: right antecubital; 20:42 Follow up: Response: No adverse reaction; IV Status: Completed infusion bm8 20:48 Drug: morphine IVP or IV 4 mg IVP once over 4 mins Route: IVP; Infused Over: 4 mins; bm8 Site: right antecubital; 20:49 Follow up: Response: Medication Administered at Departure bm8 20:48 Drug: Ondansetron IVP 4 mg IVP once; over 2 minutes Route: IVP; Site: right antecubital;bm8 20:48 Follow up: Response: Medication Administered at Departure bm8 Disposition Summary: 08/13/24 19:12 Transfer Ordered Notes: Transfer Location: [facility] sp3 Reason: Higher level of care sp3 Condition: Stable sp3 Problem: new sp3 Symptoms: have worsened sp3 Accepting Physician: TALIA(08/13/24 20:49) bm8 Diagnosis - Choledocholithiasis, abdominal pain, hyperbilirubinemia, gallstone pancreatitis sp3 Forms: - Medication Reconciliation Form sp3 - SBAR form sp3 Signatures: Dispatcher [employer] EDSuze Cummings, RN RN iw Sameer Mendez MD MD sp3 Dimple Pool RN RN kc6 Tom Nunes RN RN bm8 Corrections: (The following items were deleted from the chart) 20:49 19:12 TBD sp3 bm8
--- NOTE | 2024-08-13 19:14 | RAD REPORT ---
EXAMINATION: US Abdomen Exam Limited CLINICAL HISTORY: [facility] MAIN N Jaundice;Abd pain Bed Name: IW1 COMPARISON: None. TECHNIQUE: Limited upper abdominal grayscale and color flow sonographic images. FINDINGS: Gallbladder: Layering mildly echogenic sludge versus small calculi near the fundus. No wall thickenin g or pericholecystic fluid. Bile ducts: No intrahepatic biliary dilatation. Common bile duct is prominent proximally, measures 12 mm. Liver: Visualized portions of the liver demonstrate normal echogenicity with no suspicious findings. Fluid: No ascites. IMPRESSION: Mild layering sludge versus small stones near the gallbladder fundus. Prominent common bile duct measuring up to 12 mm. if there is concern for a distal obstructing calcul us, additional evaluation by MRCP may be warranted.
--- NOTE | 2024-08-13 19:47 | RAD REPORT ---
EXAMINATION: CT Abdomen Pelvis W Contrast CLINICAL INDICATION: Female, 49 years old. ABD PAIN TECHNIQUE: CT abdomen and pelvis was performed, after the administration of IV [facility] Axial, sagittal and coronal reconstructions were obtained. One or more of the following dose reduction techniques were used: Automated exposure control, adjustment of the mA and k V according to patient size, and iterative reconstruction. Unless otherwise specified, incidental findings do not require dedicated imaging follow-up. COMPARISON: Same day abdominal ultrasound FINDINGS: LOWER CHEST: The visualized lung bases are clear. LIVER: Normal in size and contour. No focal lesion. BILIARY SYSTEM: Prominent caliber of the extrahepatic bile ducts, with the distal CBD measuring up to 8 mm. SPLEEN: Normal size. No focal lesion. PANCREAS: Diffuse inflammatory changes with peripancreatic fluid throughout, extending along the retr operitoneum and left paracolic gutter. Mild fluid extension towards the gallbladder fossa as well. No localized collections. No evidence of gas formation or regional hypoenhancement. ADRENALS: Normal; no mass. KIDNEYS: Normal size and contour. No hydronephrosis. URINARY BLADDER: Unremarkable. GASTROINTESTINAL TRACT: No evidence of free air, significant intra-abdominal free fluid, bowel obstru ction or abscess. APPENDIX: Normal appendix. LYMPH NODES: No lymphadenopathy. MUSCULOSKELETAL: No acute or suspicious osseous abnormality. ADDITIONAL FINDINGS: None. IMPRESSION: Findings of uncomplicated acute interstitial edematous pancreatitis. Prominent caliber of the common bile duct again seen, with distal CBD measuring up to 8 mm caliber.
[2024-08-13 21:01] VITALS: TEMP 97.8
[2024-08-13 21:02] VITALS: O2SAT 100
[2024-08-13 21:04] VITALS: BP 134/76
== END 2024-08-13 20:49 | disposition short-term general hospital (02) ==
LOC: ER 17:13
DX: K80.50 Calculus of bile duct without cholangitis or cholecystitis without obstruction (principal); K85.10 Biliary acute pancreatitis without necrosis or infection; E80.6 Other disorders of bilirubin metabolism
CPT/HCPCS: 96365; 96361; 85025; 36415; 81025; 83690; 80053; 74177; 76705; 96375; 99285; Q9967; J2543; J1171; J2405 ×2; J7030